=== PATIENT | male | born 1995 | race Caucasian/White ===

== ENCOUNTER 2025-05-05 18:49 | Emergency (ER) | payer OTHER ==
[~2025-05-05] VITALS: Ht 162.6 cm; Wt 52.0 kg
[2025-05-05] MEDS: ACETAMINOPHEN 500 MG TABLET PO ONE (20:01)
[2025-05-05] MEDS: PERTUSS(ACELL),DIPH,TET/PF 0.5 ML SYRINGE [ADULT] IM. ONE (20:04)
[2025-05-05] MEDS: IBUPROFEN 600 MG TABLET PO ONE (20:04)
[2025-05-05 20:41] VITALS: BP 119/74; PULSE 68; RESP 16; TEMP 97.9; O2SAT 99
== END 2025-05-05 21:12 ==
LOC: EMS 21:04
DX: S01.112A Laceration without foreign body of left eyelid and periocular area, initial encounter (principal); F15.90 Other stimulant use, unspecified, uncomplicated; Z65.3 Problems related to other legal circumstances; S06.0XAA Concussion with loss of consciousness status unknown, initial encounter; Y08.89XA Assault by other specified means, initial encounter; Y93.9 Activity, unspecified; Y92.89 Other specified places as the place of occurrence of the external cause; Y99.8 Other external cause status
CPT/HCPCS: 70450; 90471; 90715; 99285